=== PATIENT | male | born 1980 | race African-American/Black ===

== ENCOUNTER 2018-02-20 01:06 | Emergency (ER) | payer MEDICAID ==
[~2018-02-20] VITALS: Ht 182.9 cm; Wt 107.0 kg
[2018-02-20 01:37] VITALS: BP 149/71
== END 2018-02-20 07:30 | disposition left against medical advice (07) ==
LOC: ER 01:06
DX: R50.9 Fever, unspecified (principal); Z53.21 Procedure and treatment not carried out due to patient leaving prior to being seen by health care provider

== ENCOUNTER 2021-11-02 22:22 | Emergency (ER) | payer MEDICAID ==
[~2021-11-02] VITALS: Ht 182.9 cm; Wt 107.0 kg
[2021-11-03] MEDS ORDERED: CEFAZOLIN 1000MG PREMIX 50 ML IV ONE
[2021-11-03 00:24] LABS: BASOPHILS % 0.6 % (0.0-2.0); EOSINOPHILS % 1.7 % (0.0-5.0); HEMATOCRIT. 36.5 % (42.0-52.0); HEMOGLOBIN. 12.3 g/dL (14.0-18.0); LYMPHOCYTES % 26.4 % (20.0-50.0); MEAN CORPUSCULAR HEMOGLOBIN 30.3 pg (28.0-32.0); MEAN CORPUSCULAR VOLUME 90.1 fL (80.0-94.0); MEAN PLATELET VOLUME 7.4 fl (7.4-10.4); MONOCYTES % 9.4 % (2.0-8.0); NEUTROPHILS % 61.9 % (40.0-76.0); PLATELET 477 x1000/uL (130-400); RED BLOOD CELL COUNT 4.05 mill/uL (4.7-6.1); RED CELL DISTRIBUTION WIDTH 14.1 % (11.6-14.6)
[2021-11-03 00:28] LABS: CHLORIDE 108 mEq/L (98-107)
[2021-11-03] MEDS ORDERED: SULF1TAB48 MT (01:24)
[2021-11-03] MEDS ORDERED: CEPH500C2 MT (01:24)
[2021-11-03 02:04] VITALS: BP 121/65
== END 2021-11-03 02:08 | disposition home or self-care (01) ==
LOC: ER 22:22
DX: L03.115 Cellulitis of right lower limb (principal)
CPT/HCPCS: 36415; 80053; 83605; 85025; 93971; 96365; 99284; J0690; Z7610